=== PATIENT | male | born 1945 | race Caucasian/White ===

== ENCOUNTER 2017-12-25 15:24 | Emergency (ER) | payer MEDICARE ==
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
--- NOTE | 2017-12-25 17:37 | RAD ---
INDICATION: Right hand pain after falling off of a tractor COMPARISON: None. TECHNIQUE: 4 views of the right hand were obtained. FINDINGS: There is a minimally displaced obliquely oriented fracture involving the right fifth metacarpal. Remaining visualized bones are intact and appropriately aligned. IMPRESSION: Minimally displaced obliquely oriented fracture of the right fifth metacarpal.
[2017-12-25] MEDS ORDERED: HYDROcodone/ACETAMIN 5-325 MG* 1 TAB PO ONE (17:41)
[2017-12-25 17:57] VITALS: BP 157/82
== END 2017-12-25 17:55 | disposition home or self-care (01) ==
LOC: ED 15:24
DX: S62.306A Unspecified fracture of fifth metacarpal bone, right hand, initial encounter for closed fracture (principal); V84.5XXA Driver of special agricultural vehicle injured in nontraffic accident, initial encounter; Y93.9 Activity, unspecified; Y92.9 Unspecified place or not applicable; Z87.891 Personal history of nicotine dependence
CPT/HCPCS: 99282

== ENCOUNTER 2018-01-03 07:21 | Day surgery (SDC) | payer MEDICARE ==
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
[~2018-01-03 07:21] MED LIST: Buffered Lidocaine 0.9% SYRIN* 5 ML/SYR SYRINGE INTRADERM ONE
[2018-01-03] MEDS ORDERED: ceFAZolin 2 GM PREMIX in ORs 2 GM/50 ML BAG IVPB ONE (07:29)
[2018-01-03] MEDS ORDERED: fentaNYL* 50 MCG/ML 2 ML VIAL (100 MCG VIAL) ONE ×2 (08:58→10:09)
[2018-01-03] MEDS ORDERED: ROPIVACAINE 5 MG/ML 30 ML BTL (0.5%) ONE (09:26)
[2018-01-03] MEDS ORDERED: Lidocaine 1% INJ* 10 MG/ML 30 ML SDV ONE (09:27)
[2018-01-03] MEDS ORDERED: Propofol* 10 MG/ML 20 ML BTL IV PUSH ONE (09:53)
[2018-01-03] MEDS ORDERED: EPHEDrine (Pressors)* 50 MG/ML VIAL ONE (09:53)
[2018-01-03] MEDS ORDERED: Dexamethasone IV* 4 MG/ML 1 ML (4 MG) ONE (09:53)
[2018-01-03] MEDS ORDERED: Ondansetron INJ* 2 MG/ML VIAL ONE (09:53)
[2018-01-03] MEDS ORDERED: Lidocaine 2% PF * 5 ML VIAL ONE (09:54)
[2018-01-03] MEDS ORDERED: HYDROcodone/ACETAMIN 5-325 MG* 1 TAB PO PRN (10:13)
[2018-01-03] MEDS ORDERED: Naloxone* 0.4 MG/ML 1 ML VIAL IV PRN (10:13)
[2018-01-03] MEDS ORDERED: oxyCODONE/Acetamin 5/325 MG* TAB ONE (11:23)
[2018-01-03 11:30] VITALS: BP 142/82
--- NOTE | 2018-01-03 22:33 | OP ---
DATE OF OPERATION: 01/03/18 [facility] DATE OF : 41 SURGEON: Isa Lockwood MD [employer] TECHNICIAN: ORTIZ Pepe ANESTHESIA: General. PRE-OP DIAGNOSIS: Right fifth metacarpal fracture. POST-OP DIAGNOSIS: Right fifth metacarpal fracture. OPERATIVE PROCEDURE: Open reduction and internal fixation of right fifth metacarpal. INDICATIONS FOR PROCEDURE: Gene is a 72-year-old man who fell off his tractor onto his outstretched right hand and has suffered a fracture of his fifth metacarpal, which is displaced. He presents for ORIF. ESTIMATED BLOOD LOSS: Zero. TOURNIQUET TIME: Approximately 30 minutes. DESCRIPTION OF PROCEDURE: The patient was brought to the operating room, was given a general anesthetic, and placed in the supine position on the operating table with a tourniquet around his right upper arm. The skin of his right upper extremity was prepped and draped in the usual sterile fashion. The hand and forearm were exsanguinated and the tourniquet elevated to 250 mmHg. A longitudinal incision was made over the subcutaneous border of the fifth metacarpal and we dissected through the subcutaneous tissue down to the bone. The extensor tendon was refracted radially. The periosteum was incised longitudinally and then we were able to reduce the fracture fragment and hold it with a clamp. It was then secured with two 2.0 mm screws and one 1.5 mm screw. The position of the hardware and fracture fragments was checked on the C -arm in the AP and lateral views and found to be satisfactory. The wound was irrigated and the periosteum was closed with 3-0 Polysorb suture. The skin edges were reapproximated with 4-0 nylon suture and the wound was dressed with Xeroform, 4x4, Webril, and an ulnar gutter brace. The patient tolerated the procedure well and was brought to the recovery room in good condition. [id number]/[facility] #: [id number] [facility] HOSPITALRachelle
--- NOTE | 2018-01-04 10:31 | RAD ---
INDICATION: Right hand injury COMPARISONS: December 25, 2017 TECHNIQUE: Fluoroscopy was provided for a surgical procedure. Total fluoroscopy time is: 1 minute, 16 seconds FINDINGS: Spot images demonstrate internal fixation of the fifth metacarpal. IMPRESSION: FLUOROSCOPY WAS PROVIDED FOR A SURGICAL PROCEDURE pleura, CPT II Codes: G9500
== END 2018-01-03 11:40 | disposition home or self-care (01) ==
LOC: OREAST 07:21
PROVIDERS: ATTEND Orthopaedic Surgery
DX: S62.326A Displaced fracture of shaft of fifth metacarpal bone, right hand, initial encounter for closed fracture (principal); V84.5XXA Driver of special agricultural vehicle injured in nontraffic accident, initial encounter; Y92.89 Other specified places as the place of occurrence of the external cause; Z85.46 Personal history of malignant neoplasm of prostate; Z87.891 Personal history of nicotine dependence; K21.9 Gastro-esophageal reflux disease without esophagitis
CPT/HCPCS: 76000; A9270-GY; C1713; J0690; J1100; J2405; J2704; J2795; J3010